=== PATIENT | female | born 1950 | race Caucasian/White ===

== ENCOUNTER 2021-04-05 17:34 | Emergency (ER) | payer OTHER ==
--- OUTSIDE RECORDS SUMMARY | 2021-04-05 17:38 | XMS REPORT | Continuity of Care Document ---
:1950 Author Organization [facility] t Address [address] [place] [address] Care Team Providers Name Role Phone Unavailable Unavailable Unavailable Problems This patient has no known problems. Allergies, Adverse Reactions, Alerts This patient has no known allergies or adverse reactions. Medications This patient has no known medications. Procedures This patient has no known procedures. Encounters Start End Encounter Admission Attending Care Care Encounter Source Date/Time Date/Time Type Type Clinicians Facility Department ID 2021-02-11 2021-02-11 Outpatient [facility] [id number] [facility] 00:00[facility]00 [facility]00 [facility] 2021-02-08 2021-02-08 Outpatient [facility] [id number] [facility] 2021-01-31 2021-01-31 Outpatient [facility] [id number] [facility] 2021-01-03 2021-01-03 Outpatient [facility] [id number] [facility] 2020-11-18 2020-11-18 [facility] [id number] [facility] 2020-11-16 2020-11-16 [facility] [id number] 2020-11-11 2020-11-11 [facility] [id number] [facility] 2020-11-11 2020-11-11 Outpatient [facility] [id number] [facility] 2020-11-02 2020-11-02 Outpatient [facility] [id number] [facility] Results This patient has no known results.
[2021-04-05 18:07] LABS: Urine Blood 1+ (Negative); Urine Glucose Negative (Negative); Urine Protein Negative (Negative); Urine Specific Gravity 1.015 (1.005-1.030)
[2021-04-05 18:38] LABS: Urine Bacteria <20 /HPF (<20)
--- NOTE | 2021-04-05 19:28 | RAD REPORT ---
EXAM DESCRIPTION: CT - Stone Protocol - 04/05/2021 6:32 pm CLINICAL HISTORY: HEMATURIA COMPARISON: <Comparisons> TECHNIQUE: Axial 5 mm thick images were obtained without oral or IV contrast. The eyawa-dz-qkil span s the entirety of the system including uppermost abdomen and lung bases. All CT scans are performed using dose optimization technique as appropriate and may include automated exposure control or mA/KV adjustment according to patient size. FINDINGS: Moderate severity hydronephrosis of the right renal pelvis and proximal right ureter is pr esent tapering to a mild hydronephrosis at the UVJ where there is a 5 millimeter obstructing calculus . Urinary bladder is contracted. No bladder calculi seen. No other obstructing or nonobstructing calc lara. No left-sided hydronephrosis. Right kidney is edematous. No suspicious renal masses. Isodense ma sses and pyelonephritis are not excluded on a stone protocol CT scan. No significant adrenal finding. Imaged portions of the liver, spleen and pancreas show no suspicious findings on non-contrast imaging . The liver does demonstrate diffuse fatty infiltration. No gallbladder or biliary tree abnormality i dentified. No suspicious bowel findings. Rectal anastomosis without suspicious finding. No appendicitis findings . Uterus and ovaries show no suspicious findings. No hernia, mass or bulky lymphadenopathy noted. No free air, free fluid or inflammatory stranding. No significant bony abnormality. IMPRESSION: [id number] right-sided hydronephrosis secondary to a 5 mm obstructing calculus at the UVJ. Isodense masses and pyelonephritis are not excluded on stone protocol technique.
--- NOTE | 2021-04-05 19:36 | EDPHYS ---
Physician Documentation [facility] Name: Stefania Carranza Age: 71 yrs Sex: Female : 1950 Arrival Date: 04/05/2021 Time: 17:43 Bed 20 Private MD: Ang [facility] ED Physician Kris Trotter HPI: 04/05 20:13 This 71 yrs old Female presents to ER via Ambulatory with complaints of kb Urinary Problem. 20:13 The patient has not experienced similar symptoms in the past. The patient has not kb recently seen a physician. 20:13 The patient presents with urinary symptoms, frequency, urgency, bladder pain. Onset: kb The symptoms/episode began/occurred 3 week(s) ago, and became worse today. Modifying factors: The symptoms are alleviated by nothing, the symptoms are aggravated by nothing. Associated signs and symptoms: Pertinent positives: urinary frequency, small amounts, urgency, bladder pain. Severity of symptoms: At their worst the symptoms were moderate, in the emergency department the symptoms are unchanged. Historical: - Allergies: 17:53 No Known Allergies; tw2 - Home Meds: 17:53 Synthroid 112 mcg Oral tab 1 tab once daily [Active]; albuterol sulfate 90 tw2 mcg/actuation Inhl HFAA 1 puff every 4 hours [Active]; Nexium 40 mg Oral cpDR 1 cap once daily [Active]; dandelion root [Active]; Osteo Bi-Flex Triple Strength 750 mg-644 mg- 30 mg-1 mg oral tab [Active]; Centrum Silver 0.4-300-250 mg-mcg-mcg oral tab [Active]; Azo-Standard Oral [Active]; Citracal Oral [Active]; krill kdm-gxdxn-1-dha-epa 300-90 (27-45) mg oral cap [Active]; Vitamin D Oral 50,000 unit [Active]; Pepcid AC 10 mg Oral tab 1 tab 2 times per day [Active]; aspirin 81 mg Oral TbEC 1 tab once daily [Active]; piroxicam 20 mg Oral cap 1 cap once daily [Active]; ezetimibe oral 10 mg oral [Active]; famotidine 10 mg Oral tab 1 tab once daily [Active]; cbd oil [Active]; - PMHx: 17:53 Hypothyroidism; Hyperlipidemia; tw2 - PSHx: 17:53 sigmoid colon resected; ; tw2 - Immunization history:: Adult Immunizations. - Social history:: Smoking status: . ROS: 20:12 Constitutional: Negative for fever, chills, and weight loss, Back: Negative for injury kb and pain. 20:12 : Positive for urinary symptoms, urinary frequency, small amounts. 20:12 All other systems are negative. Exam: 20:12 Constitutional: This is a well developed, well nourished patient who is awake, alert, kb and in no acute distress. Head/Face: Normocephalic, atraumatic. ENT: Moist Mucous membranes Cardiovascular: Regular rate and rhythm with a normal S1 and S2. No gallops, murmurs, or rubs. No pulse deficits. Respiratory: Respirations even and unlabored. No increased work of breathing, no retractions or nasal flaring. Abdomen/GI: Soft, non-tender. No distention Skin: Warm, dry with normal turgor. Normal color. MS/ Extremity: Pulses equal, no cyanosis. Neurovascular intact. Full, normal range of motion. Neuro: Awake and alert, GCS 15, oriented to person, place, time, and situation. Moves all extremities. Normal gait. Psych: Awake, alert, with orientation to person, place and time. Behavior, mood, and affect are within normal limits. Vital Signs: 17:46 Pulse 78; Resp 17; Temp 98(TE); Pulse Ox 99% on R/A; tw2 18:00 BP 127 / 78; tw2 19:49 BP 112 / 82; Pulse 68; Resp 16; Pulse Ox 99% on R/A; jm8 MDM: 18:01 Patient medically screened. kb 20:11 Data reviewed: vital signs, nurses notes. Data interpreted: Pulse oximetry: on room air kb is 99 %. Interpretation: normal. Counseling: I had a detailed discussion with the patient and/or guardian regarding: the historical points, exam findings, and any diagnostic results supporting the discharge/admit diagnosis, lab results, radiology results, the need for outpatient follow up, a family practitioner, to return to the emergency department if symptoms worsen or persist or if there are any questions or concerns that arise at home. 04/05 17:52 Order name: Urine Microscopic Only; Complete Time: 18:42 kb 04/05 18:06 Order name: Urine Dipstick-Ancillary; Complete Time: 18:10 EDSD 04/05 17:52 Order name: Bladder Scanner: PVR; Complete Time: 18:18 kb 04/05 18:11 Order name: CT Stone Protocol; Complete Time: 19:32 kb 04/05 17:52 Order name: Urine Dipstick-Ancillary (obtain specimen); Complete Time: 19:30 kb Administered Medications: 19:47 Drug: Flomax (tamsulosin) 0.4 mg Route: PO; jm8 19:48 Follow up: Response: No adverse reaction; Medication administered at discharge. jm8 19:48 Drug: traMADol 50 mg Route: PO; jm8 19:48 Follow up: Response: No adverse reaction; Medication administered at discharge. jm8 Disposition: 04/06 19:06 Co-signature as Attending Physician, Kris Trotter MD. rn Disposition: 04/05/21 19:35 Discharged to Home. Impression: Calculus of kidney and ureter. - Condition is Stable. - Discharge Instructions: Kidney Stones, Zogh-jc-Itnu, Dietary Guidelines to Help Prevent Kidney Stones. - Prescriptions for Zofran 4 mg Oral Tablet - take 1 tablet by ORAL route every 6 hours As needed; 20 tablet. Flomax 0.4 mg Oral Capsule, Sust. Release 24 hr - take 1 capsule by ORAL route once daily 1/2 hour following the same meal each day; 10 capsule. Tramadol 50 mg Oral Tablet - take 1 tablet by ORAL route every 8 hours as needed; 12 tablet. - Medication Reconciliation Form, Thank You Letter, Antibiotic Education, Prescription Opioid Use form. - Follow up: Emergency Department; When: As needed; Reason: Worsening of condition. Follow up: Private Physician; When: 2 - 3 days; Reason: Recheck today's complaints, Continuance of care, Re-evaluation by your physician. Signatures: Dispatcher [employer] [facility] Silke Gant, FIELD ADJUSTER-C FIELD ADJUSTER-Ckb Kris Trotter MD MD rn Wise, Tara, RN RN tw2 Brian Dey RN RN jm8 Corrections: (The following items were deleted from the chart) 04/05 19:51 19:35 04/05/2021 19:35 Discharged to Home. Impression: Calculus of kidney and ureter. jm8 Condition is Stable. Forms are Medication Reconciliation Form, Thank You Letter, Antibiotic Education, Prescription Opioid Use. Follow up: Emergency Department; When: As needed; Reason: Worsening of condition. Follow up: Private Physician; When: 2 - 3 days; Reason: Recheck today's complaints, Continuance of care, Re-evaluation by your physician. kb
--- NOTE | 2021-04-05 19:36 | ER ---
Nurse's Notes [facility] Name: Stefania Carranza Age: 71 yrs Sex: Female : 1950 Arrival Date: 04/05/2021 Time: 17:43 Bed 20 Private MD: Jabari Fry Diagnosis: Calculus of kidney and ureter Presentation: 04/05 17:46 Chief complaint: Patient states: i have been having intense bladder pain for a month tw2 but it is not everyday. i had a kidney stone about 2 years ago. but a month ago i couldn't pee all day then went to urgent care and i sat there and was able to go to the bathroom so i just left. i dribble a couple of drops like i am not emptying my bladder. Coronavirus screen: At this time, the client does not indicate any symptoms associated with coronavirus-19. Ebola Screen: Patient denies travel to an Ebola-affected area in the 21 days before illness onset. Initial Sepsis Screen: Does the patient meet any 2 criteria? No. Patient's initial sepsis screen is negative. Does the patient have a suspected source of infection? No. Patient's initial sepsis screen is negative. Risk Assessment: Do you want to hurt yourself or someone else? Patient reports no desire to harm self or others. Onset of symptoms was April 05, 2021. 17:46 Method Of Arrival: Ambulatory tw2 17:46 Acuity: BARBARA 3 tw2 Triage Assessment: 17:53 General: Appears in no apparent distress. obese, well groomed, Behavior is calm, tw2 cooperative, appropriate for age. Pain: Denies pain. : Reports burning with urination. Historical: - Allergies: 17:53 No Known Allergies; tw2 - Home Meds: 17:53 Synthroid 112 mcg Oral tab 1 tab once daily [Active]; albuterol sulfate 90 tw2 mcg/actuation Inhl HFAA 1 puff every 4 hours [Active]; Nexium 40 mg Oral cpDR 1 cap once daily [Active]; dandelion root [Active]; Osteo Bi-Flex Triple Strength 750 mg-644 mg- 30 mg-1 mg oral tab [Active]; Centrum Silver 0.4-300-250 mg-mcg-mcg oral tab [Active]; Azo-Standard Oral [Active]; Citracal Oral [Active]; krill ncg-ilepn-9-dha-epa 300-90 (27-45) mg oral cap [Active]; Vitamin D Oral 50,000 unit [Active]; Pepcid AC 10 mg Oral tab 1 tab 2 times per day [Active]; aspirin 81 mg Oral TbEC 1 tab once daily [Active]; piroxicam 20 mg Oral cap 1 cap once daily [Active]; ezetimibe oral 10 mg oral [Active]; famotidine 10 mg Oral tab 1 tab once daily [Active]; cbd oil [Active]; - PMHx: 17:53 Hypothyroidism; Hyperlipidemia; tw2 - PSHx: 17:53 sigmoid colon resected; ; tw2 - Immunization history:: Adult Immunizations. - Social history:: Smoking status: . Screenin:21 Abuse screen: Denies threats or abuse. Denies injuries from another. Nutritional tr6 screening: No deficits noted. Tuberculosis screening: No symptoms or risk factors identified. Fall Risk None identified. Assessment: 18:18 General: Appears Behavior is calm, cooperative, appropriate for age. Pain: Complains of tr6 pain in pt states she has intermittent pressure in her lower abdomen as though she needs to pee or that she has not emptied completely. currently pt denies any pain. Neuro: No deficits noted. Cardiovascular: No deficits noted. Respiratory: No deficits noted. GI: No deficits noted. : Reports. : Reports pt reports intermittent feelings of fullness or not completely emptying. EENT: No deficits noted. Derm: No deficits noted. Musculoskeletal: No deficits noted. 18:20 Reassessment: Reassessment: pt bladder scanned. scanner shows no volume greater than tr6 24mL Patient denies pain at this time. 18:25 Reassessment: pt transported to [facility] wheelchair. tr6 Vital Signs: 17:46 Pulse 78; Resp 17; Temp 98(TE); Pulse Ox 99% on R/A; tw2 18:00 BP 127 / 78; tw2 19:49 BP 112 / 82; Pulse 68; Resp 16; Pulse Ox 99% on R/A; jm8 ED Course: 17:43 Patient arrived in ED. mr 17:43 Jabari Fry, is Private Physician. mr 17:49 Triage completed. tw2 17:52 Silke Gant FNP-C [facility]. kb 17:52 Kris Trotter MD is Attending Physician. kb 17:53 Arm band placed on. tw2 18:07 Marleny Cox, RN is Primary Nurse. tr6 18:22 Patient has correct armband on for positive identification. Placed in gown. Bed in low tr6 position. Call light in reach. 18:31 CT Stone Protocol In Process Unspecified. EDMS 19:49 No provider procedures requiring assistance completed. Patient did not have IV access jmAriana during this emergency room visit. Administered Medications: 19:47 Drug: Flomax (tamsulosin) 0.4 mg Route: PO; jm8 19:48 Follow up: Response: No adverse reaction; Medication administered at discharge. jm8 19:48 Drug: traMADol 50 mg Route: PO; jm8 19:48 Follow up: Response: No adverse reaction; Medication administered at discharge. jm8 Outcome: 19:35 Discharge ordered by MD. kb 19:50 Discharged to home ambulatory. jm8 19:50 Condition: good 19:50 Discharge instructions given to patient, Instructed on discharge instructions, follow up and referral plans. medication usage, Demonstrated understanding of instructions, follow-up care, medications, Prescriptions given X 3. 19:51 Patient left the ED. jm8 Signatures: Dispatcher [employer] [facility] Silke Gant FNP-C FNP-Ckb Rivera, Mary Fiordaliza Qiu, RN RN tw2 Brian Dey, HIEN RN jm8 Marleny Cox, HIEN RN tr6
[2021-04-05 19:56] VITALS: TEMP 98; O2SAT 99
[2021-04-05] MEDS ORDERED: TAMSULOSIN 0.4 MG SR CAP ONE (19:58)
[2021-04-05 19:59] VITALS: BP 112/82
[2021-04-05] MEDS ORDERED: TRAMADOL HCL 50 MG TAB ONE (20:00)
== END 2021-04-05 19:51 | disposition home or self-care (01) ==
LOC: ER 17:34
DX: N20.2 Calculus of kidney with calculus of ureter (principal); E03.9 Hypothyroidism, unspecified; E78.5 Hyperlipidemia, unspecified; Z79.82 Long term (current) use of aspirin
CPT/HCPCS: 74176; 76377; 81003; 81015; 99283